=== PATIENT | female | born 1995 | race Caucasian/White ===

== ENCOUNTER 2017-11-25 23:38 | Emergency (ER) | payer SELFPAY ==
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
[2017-11-26] MEDS ORDERED: ZOFRAN ODT 4 MG PO ONE (00:10)
[2017-11-26] MEDS ORDERED: Adacel Vial IM ONE ×2 (00:10→00:54)
[2017-11-26] MEDS ORDERED: ZOFRAN ODT 4 MG ONE (00:49)
[2017-11-26 02:25] VITALS: BP 104/56; PULSE 80; O2SAT 97
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
== END 2017-11-26 01:29 | disposition home or self-care (01) ==
LOC: ED 23:38
DX: S06.0X0A Concussion without loss of consciousness, initial encounter (principal); V86.55XA Driver of 3- or 4- wheeled all-terrain vehicle (ATV) injured in nontraffic accident, initial encounter
CPT/HCPCS: 70450; 90471; 90715; 99284; Q0162